=== PATIENT | female | born 1995 | race Caucasian/White ===

== ENCOUNTER 2018-09-25 00:04 | Inpatient (IN) ==
[2018-09-25] MEDS ORDERED: Oxytocin 30 Units/500ml Premix 30 UNITS/500 ML BAG IV.SIG ONE (00:52)
[2018-09-25] MEDS ORDERED: Sodium Chlor 0.9% Inj 500 ML IV.SIG PRN (00:52)
[2018-09-25] MEDS ORDERED: Sod Chloride 0.9% Inj 1,000 ML IV.CONT PRN (00:52)
[2018-09-25] MEDS ORDERED: Naloxone Inj 0.4 MG/ML Vial IV.PUSH PRN (00:52)
[2018-09-25] MEDS ORDERED: Citric Acid/Sodium Citrate Liq 30 ML UDC PO SCH (01:00)
[2018-09-25 01:38] LABS: Baso % (Auto) 0.2 % (0.0-2.0); Eos % (Auto) 0.4 % (0.0-4.0); Hemoglobin 10.3 gm/dL (11.6-15.3); Lymph # (Auto) 2.2 th/mm3 (1.0-4.8); Lymph % (Auto) 20.4 % (9.0-44.0); Mean Corpuscular HGB Conc 34.2 % (32.0-36.0); Mean Corpuscular Hemoglobin 27.6 pg (27.0-34.0); Mean Corpuscular Volume 80.6 fL (80.0-100.0); Mean Platelet Volume 8.3 fL (7.0-11.0); Mono # (Auto) 0.6 th/mm3 (0.0-0.9); Mono % (Auto) 5.8 % (0.0-8.0); Neut % (Auto) 73.2 % (16.0-70.0); Platelet Count 211 th/mm3 (150-450); Red Blood Count 3.73 mil/mm3 (4.00-5.30); Red Cell Distribution Width 15.4 % (11.6-17.2); White Blood Count 10.9 th/mm3 (4.0-11.0)
[2018-09-25 02:27] LABS: Bacteria,Urine Occasional /hpf; Bilirubin,Urine Negative (Negative); Clarity,Urine Hazy (Clear); Color,Urine Yellow (Yellw/Straw); Glucose,Urine (UA) Negative (Negative); Leukocyte Esterase,Urine Moderate (Negative); Mucus,Urine Few /lpf (Occasional); Nitrite,Urine Negative (Negative); Specific Gravity,Urine 1.011 (1.002-1.035); Squamous Epithelial Cell,Urine 15 /hpf (0-5)
[2018-09-25] MEDS ORDERED: Acetaminophen 325 MG Tablet PO PRN (08:07)
[2018-09-25] MEDS: fentaNYL Citrate Inj 100 MCG/2 ML Ampul IV.PUSH PRN ×3 (11:47→22:43)
[2018-09-25] MEDS ORDERED: Penicillin G Potassium Inj 5,000,000 UNIT in Sodium Chloride 0.9% Inj 100 ML IV.SIG ONE (16:43)
[2018-09-25] MEDS ORDERED: Penicillin G Potassium Inj 5,000,000 UNIT in Sodium Chloride 0.9% Inj 100 ML IV.SIG SCH (22:00)
[2018-09-25] MEDS ORDERED: Zolpidem Tartrate 5 MG Tablet PO PRN (22:00)
[2018-09-26] MEDS ORDERED: Penicillin G Potassium Inj 2,500,000 UNIT in Sodium Chlor 0.9% Inj 100 ML IV.SIG SCH ×2 (02:00→18:00)
[2018-09-26] MEDS: fentaNYL Citrate Inj 100 MCG/2 ML Ampul IV.PUSH PRN ×3 (02:59→13:12)
[2018-09-26] MEDS ORDERED: Oxytocin 30 Units/500ml Premix 30 UNITS/500 ML BAG IV.SIG PRN (06:00)
[2018-09-26] MEDS ORDERED: fentaNYL 2MCG-Bupiv 0.125% Epi 150 ML EPIDURAL ONE (13:59)
[2018-09-26] MEDS ORDERED: Morphine Sulfate PF Inj 5 MG/10 ML Ampul ONE (21:11)
[2018-09-26] MEDS ORDERED: Zolpidem Tartrate 5 MG Tablet PO PRN (22:22)
[2018-09-26] MEDS ORDERED: Oxytocin 30 Units/500ml Premix 30 UNITS/500 ML BAG IV.SIG ONE (22:22)
[2018-09-26] MEDS ORDERED: Simethicone 80 MG Chew Tablet PO PRN (22:22)
[2018-09-26] MEDS ORDERED: Senna/Docusate Sodium 8.6/50 MG Tablet PO PRN (22:22)
--- NOTE | 2018-09-26 22:31 | P.OP ---
- Preoperative Diagnosis (1) with 39 completed weeks gestation (2) Gestational diabetes (3) Failure to progress in second stage of labor (4) Anesthesia complication - Postoperative Diagnosis (1) Failure to progress in second stage of labor (2) with 39 completed weeks gestation (3) Gestational diabetes (4) Anesthesia complication Date of procedure: 09/26/18 Procedure: Primary low transverse section STAT. Anesthesia: GETA (Patient had an epidural and it went to a high spinal which required her to be put to sleep), epidural Surgeon: Cresencio Egan MD Estimated blood loss (mL): 600 Operation and Findings: Findings normal female infant weight was 9 pounds 11 ounces Apgars 2 and 8 ( due to the general anesthesia). Ovaries fallopian tubes and uterus were all normal. Anterior and posterior cul-de-sacs were normal Complications Patient experienced a high spinal which required general anesthesia acutely Counts were correct Taken to the operating room identified by name band and verbally and given a regional anesthetic. She was prepped and draped in the usual sterile manner for a section. A time out was not taken due to the patient being under general anesthesia. A Pfannenstiel incision was made and carried down to the fascia the fascia was nicked bilaterally and the fascia was taken off the rectus muscle by blunt and sharp dissection. The rectus muscles were spread bluntly and the peritoneum was entered under direct vision. The incision was extended with care to avoid the urinary bladder. A bladder blade was placed and a bladder flap was created in the usual fashion. The lower uterine segment was then incised sharply in a transverse manner and taken down in the midline until the uterine cavity was entered. The incision was extended with the surgeon's fingers. The vertex was grasped and with fundal pressure the vertex was delivered without difficulty hypopharynx and nasopharynx were suctioned and the remainder of the delivered without difficulty. The cord was clamped cut and the was handed over to the resuscitation team cord blood was obtained the placenta was removed manually and the uterus was curettaged twice with a wet lap. The uterus was delivered from the abdomen. The uterine incision was repaired with 0 Vicryl in a running fashion in 2 layers the second layer imbricating the first. The cul-de-sac and gutters were cleaned of blood and debris the uterus was delivered back into the abdomen. The rectus muscles were reapproximated with 0 Vicryl in a running the fascia was repaired with 0 Vicryl from lateral to midline bilaterally. The subcutaneous layer was repaired with a 3-0 Vicryl. The skin was repaired with a 4-0 Monocryl in a subcuticular manner. Patient tolerated the procedure well and went to recovery room in good condition.
[2018-09-26] MEDS ORDERED: HYDROmorphone PCA Inj 6 MG/30 ML PCA.VIAL PCA ONE (22:45)
[2018-09-26] MEDS ORDERED: HYDROmorphone PF Inj 1 MG/ML Ampul IV.PUSH ONE (22:51)
[2018-09-26] MEDS ORDERED: Naloxone Inj 0.4 MG/ML Vial IV.PUSH PRN (22:51)
[2018-09-26] MEDS: ceFAZolin 2 GM Premix Inj 2 GM/50 ML PIGGYBACK IV.SIG SCH (23:00)
[2018-09-26] MEDS ORDERED: ceFAZolin Inj 2,000 MG in Sodium Chlor 0.9% Inj 80 ML IV.SIG SCH (23:00)
[2018-09-26] MEDS: HYDROmorphone PCA Inj 6 MG/30 ML PCA.VIAL PCA PRN (23:05)
[2018-09-27] MEDS ORDERED: Oxytocin 30 Units/500ml Premix 30 UNITS/500 ML BAG IV.SIG PRN (03:22)
[2018-09-27] MEDS: HYDROmorphone PCA Inj 6 MG/30 ML PCA.VIAL PCA PRN (05:40)
[2018-09-27] MEDS ORDERED: Diphtheria/Tetanus/Pertussis Vaccine Inj 0.5 ML Syringe IM ONE (06:00)
[2018-09-27] MEDS ORDERED: Measles/Mumps/Rubella Vaccine Inj 0.5 ML Vial SQ ONE (06:00)
[2018-09-27 07:06] LABS: Baso % (Auto) 0.1 % (0.0-2.0); Hematocrit 26.8 % (35.0-46.0); Hemoglobin 9.1 gm/dL (11.6-15.3); Lymph # (Auto) 1.1 th/mm3 (1.0-4.8); Lymph % (Auto) 7.5 % (9.0-44.0); Mean Corpuscular HGB Conc 33.9 % (32.0-36.0); Mean Corpuscular Hemoglobin 27.4 pg (27.0-34.0); Mean Corpuscular Volume 80.9 fL (80.0-100.0); Mean Platelet Volume 7.7 fL (7.0-11.0); Mono # (Auto) 0.8 th/mm3 (0.0-0.9); Mono % (Auto) 5.6 % (0.0-8.0); Neut # (Auto) 12.8 th/mm3 (1.8-7.7); Neut % (Auto) 86.8 % (16.0-70.0); Platelet Count 201 th/mm3 (150-450); Red Blood Count 3.31 mil/mm3 (4.00-5.30); Red Cell Distribution Width 15.5 % (11.6-17.2); White Blood Count 14.7 th/mm3 (4.0-11.0)
[2018-09-27] MEDS: ceFAZolin 2 GM Premix Inj 2 GM/50 ML PIGGYBACK IV.SIG SCH (08:02)
[2018-09-27] MEDS: Prenatal Vit/Ca/Iron/Folic Acid Tablet PO SCH (08:57)
[2018-09-27] MEDS: FLUoxetine 20 MG Capsule PO SCH (08:57)
[2018-09-27] MEDS ORDERED: Sodium Chlor 0.9% Inj 500 ML IV.SIG PRN (11:48)
--- NOTE | 2018-09-27 11:48 | P.PNOB ---
Subjective Post op day: 1 Interval history: Patient recovering from C/S that required general for high spinal Has [employer]OR[employer]. Doing well. in room. Plans to nurse. On phone with certificate office. Spoke in detail with family. They are aware her blood count is low. Recommend venofir. Objective Vital Signs/I&O: Vital Signs 09/26/18 11:45 09/26/18 12:02 09/26/18 12:15 Temperature 98.2 F Pulse Rate 87 84 90 Respiratory Rate Blood Pressure 97/59 L 90/58 L 107/75 09/26/18 12:30 09/26/18 12:45 09/26/18 13:45 Temperature Pulse Rate 85 77 81 Respiratory Rate Blood Pressure 106/72 121/84 123/106 H 09/26/18 14:00 09/26/18 14:14 09/26/18 14:20 Temperature Pulse Rate 84 86 81 Respiratory Rate Blood Pressure 130/91 H 136/84 132/85 09/26/18 14:22 09/26/18 14:24 09/26/18 14:27 Temperature Pulse Rate 143 H 119 H 107 H Respiratory Rate Blood Pressure 96/53 L 109/62 104/62 09/26/18 14:42 09/26/18 14:45 09/26/18 14:51 Temperature Pulse Rate 96 H 118 H 105 H Respiratory Rate Blood Pressure 105/61 98/54 L 112/62 09/26/18 14:54 09/26/18 14:57 09/26/18 15:00 Temperature Pulse Rate 103 H 108 H 104 H Respiratory Rate Blood Pressure 111/71 115/69 116/68 09/26/18 15:03 09/26/18 15:12 09/26/18 15:21 Temperature 98.0 F Pulse Rate 99 H 85 86 Respiratory Rate 18 Blood Pressure 115/72 111/70 119/70 09/26/18 15:42 09/26/18 15:55 09/26/18 16:21 Temperature Pulse Rate 100 H 97 H 107 H Respiratory Rate Blood Pressure 115/66 110/61 108/59 L 09/26/18 16:45 09/26/18 17:05 09/26/18 17:14 Temperature 98.2 F Pulse Rate 119 H 92 H Respiratory Rate Blood Pressure 105/72 104/75 09/26/18 17:25 09/26/18 17:30 09/26/18 17:50 Temperature Pulse Rate 98 H 105 H 100 H Respiratory Rate Blood Pressure 113/66 103/58 L 111/69 09/26/18 18:10 09/26/18 18:15 09/26/18 18:31 Temperature Pulse Rate 91 H 94 H 108 H Respiratory Rate Blood Pressure 106/65 113/69 114/58 L 09/26/18 18:55 09/26/18 18:59 09/26/18 19:05 Temperature 97.8 F Pulse Rate 99 H 91 H Respiratory Rate 20 Blood Pressure 110/69 122/78 09/26/18 19:10 09/26/18 19:45 09/26/18 19:55 Temperature Pulse Rate 100 H 94 H 102 H Respiratory Rate 20 20 Blood Pressure 118/73 119/75 09/26/18 20:10 09/26/18 20:30 09/26/18 22:37 Temperature Pulse Rate 111 H 99 H 94 H Respiratory Rate 20 Blood Pressure 107/67 130/70 09/26/18 22:38 09/26/18 23:01 09/26/18 23:19 Temperature 98.8 F Pulse Rate 86 71 Respiratory Rate 18 18 18 Blood Pressure 105/61 111/65 09/26/18 23:31 09/26/18 23:32 09/26/18 23:47 Temperature 97.7 F Pulse Rate 71 68 Respiratory Rate 17 15 Blood Pressure 116/70 126/73 09/27/18 00:02 09/27/18 00:16 09/27/18 00:20 Temperature 97.9 F Pulse Rate 72 71 Respiratory Rate 16 18 Blood Pressure 128/74 134/80 09/27/18 00:28 09/27/18 00:31 09/27/18 00:50 Temperature Pulse Rate 71 71 Respiratory Rate 14 14 16 Blood Pressure 122/70 124/67 09/27/18 01:05 09/27/18 01:44 09/27/18 05:30 Temperature 98.3 F 98.4 F Pulse Rate 69 87 71 Respiratory Rate 17 18 18 Blood Pressure 121/72 128/70 111/72 09/27/18 08:25 Temperature 98.7 F Pulse Rate 86 Respiratory Rate 18 Blood Pressure 126/72 Intake & Output 09/26/18 09/27/18 09/27/18 18:59 06:59 18:59 Intake Total 1999 Balance 1999 Weight 109 kg Intake: IV 1999 LR 1000 mL Inj 1,000 ML @ 125 1999 mls/hr IV.CONT .Q8H [facility] Rx#: [id number] Other: Weight On Admission 109 kg Result Diagrams: 09/27/18 06:53 Objective Remarks: GENERAL: Well-nourished, well-developed patient. CARDIOVASCULAR: Regular rate and rhythm without murmurs, gallops, or rubs. RESPIRATORY: Breath sounds equal bilaterally. No accessory muscle use. ABDOMEN/GI: Abdomen soft, non-tender, bowel sounds present. Incision: Clean, dry and intact. prim[place] intact with no bleeding Fundus: Firm, non-tender at umbilicus. GENITOURINARY: Light to moderate bleeding. EXTREMITIES: No cyanosis or edema, non-tender, without signs of DVT. Medications and IVs: Active Medications Fluoxetine HCl (Prozac) 40 mg PO DAILY [facility] Last Admin: 09/27/18 08:57 Dose: 40 mg Oxytocin (Pitocin 30 Units/Ns 500 Ml Premix) 30 units in 500 mls @ 2 mls/hr IV.SIG TITRATE PRN; Protocol PRN Reason: For induction of labor Last Admin: 09/26/18 06:01 Dose: 2 milliunit/min, 2 mls/hr Lactated Ringer's (Lr 1000 Ml Inj) 1,000 mls @ 100 mls/hr IV.CONT .Q10H [facility] Stop: 09/27/18 23:21 Oxytocin (Pitocin 30 Units/Ns 500 Ml Premix) 30 units in 500 mls @ 100 mls/hr IV.SIG UNSCH PRN PRN Reason: Heavy bleeding Hydromorphone/Sodium Chloride (Dilaudid [employer] Inj) 6 mg in 30 mls @ 0 mls/hr [employer] UNSCH PRN PRN Reason: prn pain Last Infusion: 09/27/18 05:43 Dose: 0 mls/hr Ibuprofen (Motrin) 800 mg PO Q8H PRN PRN Reason: cramping Last Admin: 09/27/18 08:57 Dose: 800 mg Naloxone HCl (Narcan Inj) 0.4 mg IV.PUSH PRN PRN PRN Reason: SEE LABEL COMMENTS Ondansetron HCl (Zofran Inj) 4 mg IV.PUSH Q6H PRN PRN Reason: NAUSEA OR VOMITING Last Admin: 09/27/18 08:57 Dose: 4 mg Oxycodone/Acetaminophen (Percocet 5/325 Mg) 1 tab PO Q4H PRN PRN Reason: PAIN SCALE 3 TO 5 Oxycodone/Acetaminophen (Percocet 5/325 Mg) 2 tab PO Q4H PRN PRN Reason: PAIN SCALE 6 TO 10 Vit/Calcium/Iron/Folic Ac (Stuartnatal Plus 3) 1 tab PO DAILY [facility] Last Admin: 09/27/18 08:57 Dose: 1 tab Senna/Docusate Sodium (Rayna-Colace) 2 tab PO Q12H PRN PRN Reason: CONSTIPATION Simethicone (Mylicon Chew) 80 mg PO QID PRN PRN Reason: FLATULENCE Sodium Chloride (Ns Flush) 2 ml IV.FLUSH BID [facility] Sodium Chloride (Ns Flush) 2 ml IV.FLUSH PRN PRN PRN Reason: FLUSH AFTER USING IV ACCESS Zolpidem Tartrate (Ambien) 5 mg PO HS PRN PRN Reason: INSOMNIA Assessment and Plan - Diagnosis (1) Macrosomia Code(s): P08.0 - Exceptionally large baby Status: Acute (2) with 39 completed weeks gestation Code(s): Z3A.39 - 39 weeks gestation of Status: Acute (3) Failure to progress in second stage of labor Code(s): O62.2 - Other uterine inertia Status: Acute - Plan give bolus of fluid for low concentrated urine in lopez. Then remove lopez give venofir remove [employer]OR[employer] later today stop accuchecks that were in place due to GDM Suspect questionable control due to macrosomia watch for persistent diabetes at 6 weeks
[2018-09-27] MEDS ORDERED: Iron Sucrose Inj 200 MG in Sodium Chlor 0.9% Inj 100 ML IV.SIG ONE (13:00)
[2018-09-27] MEDS ORDERED: Sodium Chlor 0.9% Inj 500 ML IV.CONT SCH (13:00)
[2018-09-28 05:19] LABS: Baso % (Auto) 0.3 % (0.0-2.0); Eos # (Auto) 0.1 th/mm3 (0.0-0.4); Eos % (Auto) 0.7 % (0.0-4.0); Hematocrit 23.6 % (35.0-46.0); Lymph # (Auto) 2.4 th/mm3 (1.0-4.8); Lymph % (Auto) 23.9 % (9.0-44.0); Mean Corpuscular Hemoglobin 27.2 pg (27.0-34.0); Mean Corpuscular Volume 80.1 fL (80.0-100.0); Mean Platelet Volume 7.7 fL (7.0-11.0); Mono # (Auto) 0.7 th/mm3 (0.0-0.9); Mono % (Auto) 6.8 % (0.0-8.0); Neut # (Auto) 6.9 th/mm3 (1.8-7.7); Neut % (Auto) 68.3 % (16.0-70.0); Platelet Count 188 th/mm3 (150-450); Red Blood Count 2.95 mil/mm3 (4.00-5.30); Red Cell Distribution Width 15.4 % (11.6-17.2)
[2018-09-28 07:51] LABS: Hemoglobin A1c 5.6 % (4.3-6.0)
--- NOTE | 2018-09-28 08:01 | P.PNOB ---
Subjective Post op day: 2 Interval history: Doing well Bleeding is normal Pain is fairly well controlled Baby is good. Objective Vital Signs/I&O: Vital Signs 09/27/18 08:25 09/27/18 12:00 09/27/18 16:00 Temperature 98.7 F 98.6 F 98.8 F Pulse Rate 86 82 95 H Respiratory Rate 18 16 16 Blood Pressure 126/72 115/69 121/77 09/27/18 20:15 09/27/18 20:30 Temperature 98.0 F 98.0 F Pulse Rate 80 80 Respiratory Rate 18 18 Blood Pressure 107/62 107/62 Result Diagrams: 09/28/18 05:00 Objective Remarks: GENERAL: Well-nourished, well-developed patient. CARDIOVASCULAR: Regular rate and rhythm without murmurs, gallops, or rubs. RESPIRATORY: Breath sounds equal bilaterally. No accessory muscle use. ABDOMEN/GI: Abdomen soft, non-tender, bowel sounds present. Incision: Clean, dry and intact. Fundus: Firm, non-tender at umbilicus. GENITOURINARY: Light to moderate bleeding. EXTREMITIES: No cyanosis or edema, non-tender, without signs of DVT. Assessment and Plan - Plan POD #2 Severe anemia will continue venofer and check CBC in the am Consider d/c home tomorrow ..
[2018-09-28] MEDS: Prenatal Vit/Ca/Iron/Folic Acid Tablet PO SCH (08:23)
[2018-09-28] MEDS: FLUoxetine 20 MG Capsule PO SCH (08:23)
[2018-09-28] MEDS: Iron Sucrose Inj 200 MG in Sodium Chlor 0.9% Inj 100 ML IV.SIG SCH (09:46)
--- NOTE | 2018-09-29 05:30 | P.PNOB ---
Subjective Post op day: 3 Interval history: doing well, pain improving and appropriate for POD #3, ambulating, no dizziness , voiding, tolerating regular diet. Objective Vital Signs/I&O: Vital Signs 09/28/18 08:00 09/28/18 19:16 Temperature 98.6 F 98.3 F Pulse Rate 88 78 Respiratory Rate 18 16 Blood Pressure 118/81 115/70 Result Diagrams: 09/28/18 05:00 Objective Remarks: GENERAL: Well-nourished, well-developed patient. CARDIOVASCULAR: Regular rate and rhythm without murmurs, gallops, or rubs. RESPIRATORY: Breath sounds equal bilaterally. No accessory muscle use. ABDOMEN/GI: Abdomen soft, non-tender, bowel sounds present. Incision: Clean, dry and intact. Fundus: Firm, non-tender at umbilicus. GENITOURINARY: Light to moderate bleeding. EXTREMITIES: No cyanosis or edema, non-tender, without signs of DVT. Medications and IVs: Active Medications Fluoxetine HCl (Prozac) 40 mg PO DAILY [facility] Last Admin: 09/28/18 08:23 Dose: 40 mg Oxytocin (Pitocin 30 Units/Ns 500 Ml Premix) 30 units in 500 mls @ 2 mls/hr IV.SIG TITRATE PRN; Protocol PRN Reason: For induction of labor Last Admin: 09/26/18 06:01 Dose: 2 milliunit/min, 2 mls/hr Oxytocin (Pitocin 30 Units/Ns 500 Ml Premix) 30 units in 500 mls @ 100 mls/hr IV.SIG UNSCH PRN PRN Reason: Heavy bleeding Sodium Chloride (Ns Inj) 500 mls @ 1,000 mls/hr IV.SIG UNSCH PRN PRN Reason: SEE LABEL COMMENTS Iron Sucrose 200 mg/ Sodium (Chloride) 110 mls @ 110 mls/hr IV.SIG DAILY [facility] Stop: 09/30/18 09:59 Last Admin: 09/28/18 09:46 Dose: 110 mls/hr Ibuprofen (Motrin) 800 mg PO Q8H PRN PRN Reason: cramping Last Admin: 09/28/18 22:30 Dose: 800 mg Naloxone HCl (Narcan Inj) 0.4 mg IV.PUSH PRN PRN PRN Reason: SEE LABEL COMMENTS Ondansetron HCl (Zofran Inj) 4 mg IV.PUSH Q6H PRN PRN Reason: NAUSEA OR VOMITING Last Admin: 09/27/18 08:57 Dose: 4 mg Oxycodone/Acetaminophen (Percocet 5/325 Mg) 1 tab PO Q4H PRN PRN Reason: PAIN SCALE 3 TO 5 Oxycodone/Acetaminophen (Percocet 5/325 Mg) 2 tab PO Q4H PRN PRN Reason: PAIN SCALE 6 TO 10 Last Admin: 09/29/18 02:58 Dose: 2 tab Vit/Calcium/Iron/Folic Ac (Stuartnatal Plus 3) 1 tab PO DAILY [facility] Last Admin: 09/28/18 08:23 Dose: 1 tab Senna/Docusate Sodium (Rayna-Colace) 2 tab PO Q12H PRN PRN Reason: CONSTIPATION Last Admin: 09/28/18 08:23 Dose: 2 tab Simethicone (Mylicon Chew) 80 mg PO QID PRN PRN Reason: FLATULENCE Sodium Chloride (Ns Flush) 2 ml IV.FLUSH BID [facility] Last Admin: 09/28/18 22:31 Dose: 2 ml Sodium Chloride (Ns Flush) 2 ml IV.FLUSH PRN PRN PRN Reason: FLUSH AFTER USING IV ACCESS Zolpidem Tartrate (Ambien) 5 mg PO HS PRN PRN Reason: INSOMNIA Assessment and Plan - Diagnosis (1) Macrosomia Code(s): P08.0 - Exceptionally large baby Status: Acute (2) with 39 completed weeks gestation Code(s): Z3A.39 - 39 weeks gestation of Status: Acute (3) Failure to progress in second stage of labor Code(s): O62.2 - Other uterine inertia Status: Acute - Plan 22 yo s/p PLTCS for arrest of 2nd stage of labor, also had high spinal required GETA 1. POD #3: AF, VSS, meeting milestones, d/c home today, discussed expectations, precautions and follow up. - Post op anemia, AM noted and appropriate, sent home with PO iron and stool softners - female 2. MDD: continue home fluoxetine, discuss blues and risk of worsening mood, will see us in 1 week 3. GMDA2: needs 2hr GTT at 6w FU.
[2018-09-29 08:57] LABS: Hematocrit 22.6 % (35.0-46.0); Hemoglobin 7.8 gm/dL (11.6-15.3); Mean Corpuscular HGB Conc 34.4 % (32.0-36.0); Mean Corpuscular Volume 81.4 fL (80.0-100.0); Mean Platelet Volume 7.6 fL (7.0-11.0); Platelet Count 208 th/mm3 (150-450); Red Blood Count 2.78 mil/mm3 (4.00-5.30); Red Cell Distribution Width 15.3 % (11.6-17.2); White Blood Count 7.9 th/mm3 (4.0-11.0)
[2018-09-29] MEDS: Iron Sucrose Inj 200 MG in Sodium Chlor 0.9% Inj 100 ML IV.SIG SCH (09:06)
[2018-09-29] MEDS: FLUoxetine 20 MG Capsule PO SCH (09:07)
[2018-09-29] MEDS: Prenatal Vit/Ca/Iron/Folic Acid Tablet PO SCH (09:07)
== END 2018-09-29 13:33 | disposition home or self-care (01) ==
LOC: H2E 00:04 → H1EA 09-27 01:25
PROVIDERS: ADMIT Obstetrics & Gynecology; ATTEND Obstetrics & Gynecology